=== PATIENT | female | born 1955 | race Caucasian/White ===

== ENCOUNTER 2018-03-07 09:09 | Outpatient (CLI) | payer OTHER ==
--- NOTE | 2018-03-07 09:52 | RAD ---
PA AND LATERAL CHEST: History: Pneumonia, cough. FINDINGS: Comparison made with exam of 04-07-09. The heart size is normal. The lungs are well expanded without focal areas of consolidation, pneumotho races or pleural effusions. There are post op changes in the cervical spine. IMPRESSION: No radiographic evidence of acute cardiopulmonary process. POS: OFF
== END 2018-03-07 09:10 | disposition home or self-care (01) ==
LOC: BICRAD 09:09
PROVIDERS: ATTEND Allergy & Immunology
DX: J18.9 Pneumonia, unspecified organism (principal)
CPT/HCPCS: 71046

== ENCOUNTER 2018-04-08 13:24 | Outpatient (CLI) | payer OTHER ==
--- NOTE | 2018-04-08 13:54 | RAD ---
LEFT SHOULDER TWO VIEWS: History: Polyarthritis. FINDINGS: There is a benign appearing lytic density seen within the humeral neck with sclerotic margins. Glenoh umeral joint space is normal in appearance. There is arthritic changes of the AC joint. There are no signs of any lytic bony erosion type changes that would suggest an erosive osteoarthritis. IMPRESSION: Bony demineralization arthritic changes of the AC joint. Benign appearing lesion within the humeral n [place]. POS: [facility]
--- NOTE | 2018-04-08 13:56 | RAD ---
RIGHT SHOULDER TWO VIEWS: History: Patient has autoimmune disease, polyarthritis. FINDINGS: The glenohumeral joint space is normal. There is some osteoarthritic changes of the AC joint. Bones a ppear slightly demineralized. IMPRESSION: Mild osteoarthritic changes of the acromioclavicular joint. POS: [facility]
--- NOTE | 2018-04-08 14:06 | RAD ---
AP PELVIS: History: Polyarthritis. FINDINGS: SI joints are symmetric. No signs of any erosive bony change. Hip joints show minimal osteoarthritic change. There appears to be some bony demineralization. Osteoarthritic change of the lower lumbar spi ne is seen. IMPRESSION: Suggestion of bony demineralization. Minimal arthritic changes of the hips. POS: [facility]
--- NOTE | 2018-04-08 15:22 | RAD ---
LUMBAR SPINE THREE VIEWS: HISTORY: Ployarthritis and back pain. FINDINGS: Multilevel degenerative changes are present. No acute fracture or subluxation is identified. Disk s pace narrowing with associated adjacent endplate bony erosion is noted at the L2-L3 level. There is minimal retrolisthesis of the L5/S1 vertebral bodies. Minimal levoscoliosis of the lumbar spine is s een. POS: [facility]
== END 2018-04-08 13:25 | disposition home or self-care (01) ==
LOC: BICRAD 13:24
PROVIDERS: ATTEND Internal Medicine Rheumatology
DX: M13.0 Polyarthritis, unspecified (principal); M16.0 Bilateral primary osteoarthritis of hip; M19.011 Primary osteoarthritis, right shoulder; M19.012 Primary osteoarthritis, left shoulder
CPT/HCPCS: 72100; 72170

== ENCOUNTER 2020-12-21 13:30 | Outpatient (CLI) | payer OTHER ==
[~2020-12-21 13:30] MED LIST: Magnevist 469MG/ML 20 ML VIAL ONE
== END 2020-12-21 13:31 | disposition home or self-care (01) ==
LOC: TBSIIMAG 13:30
PROVIDERS: ATTEND Chiropractor
DX: M51.36 Other intervertebral disc degeneration, lumbar region (principal); M54.50 Low back pain, unspecified; G89.29 Other chronic pain
CPT/HCPCS: 72158; 82565; A9579

== ENCOUNTER 2022-09-29 07:35 | Emergency (ER) | payer OTHER ==
[2022-09-29] MEDS ORDERED: predniSONE 20 MG TAB ONE (08:12)
[2022-09-29] MEDS ORDERED: Ketorolac Tromethamine 30 MG/ML VIAL ONE (08:12)
[2022-09-29 08:33] LABS: Bacteria/HPF None Seen HPF (None Seen); Bilirubin Negative (Negative); Blood, Urine Negative (Negative); CAUTI Indications for Culture Pelvic or flank pain; Clarity Clear (Clear); Glucose, Urine (Dipstick) Normal (Negative); Ketone, Urine Negative (Negative); Leukocyte 250 Leu/uL (Negative); Nitrite Negative (Negative); Protein, Urine (Dipstick) Negative (Neg-Trace); RBC/HPF 0-3 HPF (0-3); Specific Gravity, Urine 1.007 (1.002-1.036); Squamous Epithelial 0-3 HPF (0-3); Urobilinogen Normal mg/dL (Less than 2); WBC/HPF 0-3 HPF (0-3); pH, Urine 5.5 (5.0-9.0)
[2022-09-29 08:37] LABS: #Basophils 0.1 thou/uL (0.0-0.2); #Eosinphils 0.4 thou/uL (0.0-0.7); #Monocytes 0.7 thou/uL (0.11-0.59); #Neutrophils 2.4 thou/uL (1.40-6.50); %Basophils 1.7 % (0.0-1.0); %Eosinophils 8.3 % (0.0-10.0); %Lymphocytes 30.8 % (21.0-51.0); %Monocytes 12.6 % (0.0-10.0); %Neutrophils 46.4 % (42.0-75.0); Hemoglobin 12.7 g/dL (12.0-16.0); Mean Corpuscular Hemoglobin 30.7 pg (27.0-31.0); Mean Platelet Volume 9.9 fL (7.4-10.4); Platelet Count 220 10x3/uL (130-400); RBC Distribution Width 12.3 % (11.5-14.5); Red Blood Cell (RBC) Count 4.14 mill/uL (4.20-5.40); White Blood Cell (WBC) Count 5.2 10x3/uL (4.8-10.8)
[2022-09-29 08:52] LABS: Urine Culture Reflex No No
[2022-09-29 08:59] LABS: ALT (SGPT) 10 U/L (8-55); AST (SGOT) 20 U/L (5-34); Albumin 4.5 g/dL (3.4-4.8); Alkaline Phosphatase 49 U/L (40-110); Anion Gap 12 mmol/L (10-20); BUN (Urea Nitrogen) 25 mg/dL (9.8-20.1); Bilirubin, Total 0.3 mg/dL (0.2-1.2); Calc. Creatinine Clearance 0 mL/min (70-130); Calcium 10.1 mg/dL (7.8-10.44); Carbon Dioxide 23 mmol/L (23-31); Chloride 104 mmol/L (98-107); Estimated GFR 52; Globulin 2.9 g/dL (2.4-3.5); Glucose 87 mg/dL (80-115); Potassium 4.3 mmol/L (3.5-5.1); Protein, Total 7.4 g/dL (5.8-8.1); Sodium 135 mmol/L (136-145)
== END 2022-09-29 09:36 | disposition home or self-care (01) ==
LOC: ERS 07:35
DX: R20.2 Paresthesia of skin (principal); F17.210 Nicotine dependence, cigarettes, uncomplicated
CPT/HCPCS: 36415; 72128; 72131; 80053; 81001; 85025; 96372; J1885; J7512